=== PATIENT | female | born 1995 | race African-American/Black ===

== ENCOUNTER 2017-08-15 13:50 | Observation (INO) | payer MEDICAID ==
[~2017-08-15 13:50] MED LIST: PREN-153 OR
[2017-08-15] MEDS ORDERED: LACTATED RINGER'S 1,000 ML IV ONE (15:39)
[2017-08-15 16:35] LABS: Mean Corpuscular Hemoglobin 19.3 pg (28.0-32.0); Mean Corpuscular Hgb Conc. 29.6 g/dL (32.0-36.0); Mean Corpuscular Volume 65.2 fL (80.0-100.0); White Blood Cell 8.5 10^3/uL (4.4-10.8)
[2017-08-15 16:37] LABS: Hematocrit 24.9 % (36.0-46.0); Hemoglobin 7.4 g/dL (12.2-16.2); Platelet Count (auto) 180 10^3/uL (140-450); Red Blood Cells 3.82 10^6/uL (4.0-5.20); Red Cell Distribution Width 17.9 % (11.8-14.3)
[2017-08-15 16:41] LABS: Albumin 2.4 g/dL (3.4-5.0); BUN/Creatinine Ratio 7.3; Calcium 7.8 mg/dL (8.5-10.1); Potassium 3.5 mmol/L (3.5-5.1)
[2017-08-15 16:41] LABS: Alcohol, Urine < 3.0 mg/dL (0-5); Amphetamine Screen, Urine NEGATIVE (NEGATIVE); Barbiturate Scree,Urine NEGATIVE (NEGATIVE); Benzodiazephine Screen, Urine NEGATIVE (NEGATIVE); Cannabinoid Screen, Urine POSITIVE (NEGATIVE); Cocaine Screen, Urine NEGATIVE (NEGATIVE); Opiate Scree,Urine NEGATIVE (NEGATIVE); Phencyclidine Screen, Urine NEGATIVE (NEGATIVE)
[2017-08-15 16:44] LABS: Bilirubin, Total 0.5 mg/dL (0.2-1.0); Total Protein 6.5 g/dL (6.4-8.2)
[2017-08-15 16:51] LABS: Basophils % (manual) 0 (0.0-2.0); Blast Cells 0; Metamyelocytes % 0; Myelocytes % 0; Promyelocytes % 0; Reactive Lymphocytes 0
[2017-08-15 16:56] LABS: INR 0.88 (0.9-1.15); Partial Thromboplastin Time 31.1 sec (22.64-33.71); Prothrombin Time 9.6 sec (9.37-12.3)
[2017-08-15 17:03] LABS: Urine Bacteria MANY /hpf (None Seen); Urine Blood Negative /uL (Negative); Urine Mucus FEW (None Seen); Urine Specific Gravity 1.011 (1.001-1.035); Urine WBC 2 /hpf (0 - 5)
[2017-08-15 18:50] LABS: Band Neutrophils % (manual) 2; Eosinophils % (manual) 1 (0-7); Lymphocytes % (manual) 12 (10.0-50.0); Monocytes % (manual) 2 (0-12)
[2017-08-16 05:06] LABS: RPR Non Reactive (Non Reactive)
[2017-08-16 09:07] LABS: Rubella Antibodies, IgG 2.75 index (Immune >0.99)
== END 2017-08-15 17:25 | disposition home or self-care (01) | DRG 566 ==
LOC: LDRP 13:50
PROVIDERS: ADMIT Specialist; ATTEND Specialist
DX: O26.893 Other specified pregnancy related conditions, third trimester (principal); R05 Cough; R10.9 Unspecified abdominal pain; Z3A.28 28 weeks gestation of pregnancy
CPT/HCPCS: 36415; 59025; 76805; 80053; 80307; 81001; 81002; 85007; 85027; 85610; 85730; 86592; 86703; 86762; 86850; 86900; 86901; 87340; 96360; G0378; 96361